=== PATIENT | male | born 1990 | race African-American/Black ===

== ENCOUNTER 2024-04-03 20:36 | Emergency (ER) | payer SELFPAY ==
[~2024-04-03] VITALS: Ht 180.3 cm; Wt 98.0 kg
[2024-04-03 20:39] VITALS: BP 133/76; TEMP 98.4; O2SAT 100
[2024-04-03 20:40] VITALS: PULSE 89; RESP 16
[2024-04-03 21:06] LABS: CLARITY URINE CLEAR (CLEAR); COLOR URINE YELLOW (YELLOW); GLUCOSE URINE NEGATIVE (NEGATIVE); KETONES URINE NEGATIVE (NEGATIVE); LEUKOCYTE ESTERASE URINE NEGATIVE (NEGATIVE); NITRITE URINE NEGATIVE (NEGATIVE); OCCULT BLOOD URINE NEGATIVE (NEGATIVE); PROTEIN URINE NEGATIVE (NEGATIVE); SPECIFIC GRAVITY URINE 1.019 (1.005-1.030); UROBILINOGEN URINE 0.2 E.U./dL (0.2-1.0)
== END 2024-04-04 00:44 | disposition home or self-care (01) ==
LOC: ER 20:36
DX: N50.3 Cyst of epididymis (principal)
CPT/HCPCS: 76870; 81003; 93976; 99284

== ENCOUNTER 2025-08-10 22:03 | Emergency (ER) | payer MEDICAID ==
[~2025-08-10] VITALS: Ht 180.3 cm; Wt 87.6 kg
[2025-08-10 22:17] VITALS: O2SAT 100
[2025-08-11 00:27] VITALS: TEMP 37; O2SAT 100
[2025-08-11 00:29] VITALS: BP 147/88; PULSE 76; RESP 18
[2025-08-11] MEDS: KETOROLAC 15MG/ML VIAL IM ONE (00:29)
[2025-08-11] MEDS ORDERED: LIDO-53 TP (00:30)
[2025-08-11] MEDS ORDERED: NAPR-1176 MT (00:30)
== END 2025-08-11 00:53 | disposition home or self-care (01) ==
LOC: ER 22:03
DX: M54.2 Cervicalgia (principal); Z79.899 Other long term (current) drug therapy
CPT/HCPCS: 72125; 99285; 96372; J1885; Z7610